=== PATIENT | male | born 1960 | race Caucasian/White ===

== ENCOUNTER 2022-10-19 08:07 | Outpatient (CLI) | payer OTHER, SELFPAY ==
--- NOTE | 2022-10-19 08:15 | CRLHL7_ITS ---
For Patients: As a result of the Century Cures Act, medical imaging exams and procedure reports are released immediately into your electronic medical record. You may view this report before your referring provider. If you have questions, please contact your health care provider. Technique: Double-contrast esophagram performed after the uneventful administration of effervescent crystals and thick barium followed by thin barium. Fluoroscopy time 1 minute 9 second. Indication: ACID REFLUX, Zenker`s AND GASTROESOPHAGEAL DISEASE Comparison: 10/16/2019 Findings: Small Zenker diverticulum again noted measuring 4 millimeters, considered incidental. There is decreased esophageal motility which has worsened compared to the prior study with inability to clear the esophagus even in the upright position. No hiatal hernia is present. No evidence of achalasia. Distal esophageal spasm is noted. No ulcer. There is the faint suggestion of mild mucosal irregularity involving the mid esophagus. Spontaneous reflux. Impression: Overall, progression abnormalities involving the esophagus compared to the prior study. Persistent spontaneous reflux with worsening of esophageal motility with inability to clear the esophagus even in the upright position. Suggestion of mucosal irregularity involving the midesophagus, concerning for a King`s. EGD recommended. Distal esophageal spasm. No hernia and no stricture/achalasia. Dictated by Juvenal Emanuel MD @ 10/19/2022 9:17:00 AM (Electronically Signed)
== END 2022-10-19 08:08 | disposition home or self-care (01) ==
PROVIDERS: Visit Provider Otolaryngology
DX: K21.9 Gastro-esophageal reflux disease without esophagitis (principal)
CPT/HCPCS: 74221